=== PATIENT | male | born 1990 | race Two or more races ===

== ENCOUNTER 2019-09-05 12:42 | Emergency (ER) | payer MEDICAID ==
[~2019-09-05] VITALS: Ht 177.8 cm; Wt 71.0 kg
[2019-09-05] MEDS ORDERED: IBUPROFEN 600MG TABLET PO ONE (13:15)
[2019-09-05 15:17] VITALS: BP 122/78
== END 2019-09-05 15:19 | disposition home or self-care (01) ==
LOC: ER 12:42
DX: S20.212A Contusion of left front wall of thorax, initial encounter (principal); S20.211A Contusion of right front wall of thorax, initial encounter; Y08.89XA Assault by other specified means, initial encounter; Y93.89 Activity, other specified; Y92.89 Other specified places as the place of occurrence of the external cause; Y99.8 Other external cause status
CPT/HCPCS: 71111; 99283